=== PATIENT | male | born 1965 | race Caucasian/White ===

== ENCOUNTER 2018-12-02 13:04 | Emergency (ER) | payer BC, OTHER ==
[2018-12-02] MEDS ORDERED: Ketorolac 60 MG/2 ML SDV IM ONE (13:20)
[2018-12-02] MEDS ORDERED: Diazepam 5 MG Tab PO ONE (13:20)
--- NOTE | 2018-12-02 13:21 | EDM.PDOC ---
ED HPI GENERAL MEDICAL PROBLEM - General Chief Complaint: Back Pain or Injury Stated Complaint: BACK PAIN Time Seen by Provider: 12/02/18 13:21 Source of Information: Reports: Patient - History of Present Illness INITIAL COMMENTS - FREE TEXT/NARRATIVE: HISTORY AND PHYSICAL: History of present illness: [Patient presents with low back pain, he lifts heavy objects frequently while at work however injury did not actually occur at work where he first had symptoms, he was moving a small hole was radial on his back and symptoms began complains of 8 out of 10 back pain no radiation no footdrop saddle anesthesia no bowel or urine symptoms Can reproduce pain with palpation over right paraspinous muscles as well as left ] Review of systems: As per history of present illness and below otherwise all systems reviewed and negative. Past medical history: As per history of present illness and as reviewed below otherwise noncontributory. Surgical history: As per history of present illness and as reviewed below otherwise noncontributory. Social history: No reported history of drug or alcohol abuse. Family history: As per history of present illness and as reviewed below otherwise noncontributory. Physical exam: HEENT: Atraumatic, normocephalic, pupils reactive, negative for conjunctival pallor or scleral icterus, mucous membranes moist, throat clear, neck supple, nontender, trachea midline. Lungs: Clear to auscultation, breath sounds equal bilaterally, chest nontender. Heart: S1S2, regular, negative for clicks, rubs, or JVD. Abdomen: Soft, nondistended, nontender. Negative for masses or hepatosplenomegaly. Negative for costovertebral tenderness. Pelvis: Stable nontender. Genitourinary: Deferred. Rectal: Deferred. Extremities: Atraumatic, negative for cords or calf pain. Neurovascular unremarkable. Neuro: Awake, alert, oriented. Cranial nerves II through XII unremarkable. Cerebellum unremarkable. Motor and sensory unremarkable throughout. Exam nonfocal. Diagnostics: [Lumbar spine ] Therapeutics: [Toradol 60 mg IM Valium 5 mg by mouth ] Paxton Flexeril Rest ice ibuprofen Impression: [ local back pain/injury Or spinous muscle spasm left greater than right ] Definitive disposition and diagnosis as appropriate pending reevaluation and review of above. back Pain Score (Numeric/FACES): 10 - Related Data Allergies Allergy/AdvReac Type Severity Reaction Status Date / Time No Known Allergies Allergy Verified 12/02/18 13:17 Home Meds: Home Meds . [No Known Home Meds] 12/02/18 [History] ED ROS GENERAL - Review of Systems Review Of Systems: See Below ED EXAM, GENERAL - Physical Exam Exam: See Below Course - Vital Signs Last Recorded V/S: Last Vital Signs Temp 97.5 F 12/02/18 13:17 Pulse 82 12/02/18 13:17 Resp 20 12/02/18 13:17 BP 144/71 H 12/02/18 13:17 Pulse Ox 95 12/02/18 13:17 - Orders/Labs/Meds Orders: Active Orders 24 hr Category Date Time Status Lumbar Spine 2 or 3V [CR] Stat Exams 12/02/18 13:27 Taken Meds: Medications Discontinued Medications Generic Name Dose Route Start Last Admin Trade Name [place] PRN Reason Stop Dose Admin Diazepam 5 mg 12/02/18 13:20 12/02/18 13:41 Valium. PO 12/02/18 13:21 5 mg ONETIME ONE Administration Ketorolac Tromethamine 60 mg 12/02/18 13:20 12/02/18 13:42 Toradol IM 12/02/18 13:21 60 mg ONETIME ONE Administration Departure - Departure Time of Disposition: 14:18 Disposition: Home, Self-Care 01 Condition: Good Clinical Impression: Lumbar paraspinal muscle spasm, Back pain - Discharge Information Referrals: PCP,Unknown [Primary Care Provider] - Forms: ED Department Discharge Additional Instructions: The following information is given to patients seen in the emergency department who are being discharged to home. This information is to outline your options for follow-up care. We provide all patients seen in our emergency department with a follow-up referral. The need for follow-up, as well as the timing and circumstances, are variable depending upon the specifics of your emergency department visit. If you don't have a primary care physician on staff, we will provide you with a referral. We always advise you to contact your personal physician following an emergency department visit to inform them of the circumstance of the visit and for follow-up with them and/or the need for any referrals to a consulting specialist. The emergency department will also refer you to a specialist when appropriate. This referral assures that you have the opportunity for follow-up care with a specialist. All of these measure are taken in an effort to provide you with optimal care, which includes your follow-up. Under all circumstances we always encourage you to contact your private physician who remains a resource for coordinating your care. When calling for follow-up care, please make the office aware that this follow-up is from your recent emergency room visit. If for any reason you are refused follow-up, please contact the [facility] emergency department at and asked to speak to the emergency department charge nurse. - My Orders Last 24 Hours: My Active Orders 12/02/18 13:27 Lumbar Spine 2 or 3V [CR] Stat - Assessment/Plan Last 24 Hours: My Active Orders 12/02/18 13:27 Lumbar Spine 2 or 3V [CR] Stat
--- NOTE | 2018-12-02 14:48 | CR ---
INDICATION: Was moving furniture yesterday and this morning the pt states he couldn`t even get out of bed FINDINGS: Three views of the lumbar spine show normal height and alignment of the lumbar vertebral bodies. No evidence of acute fracture or dislocation. Small diffuse marginal osteophyte formation. No other bony or soft tissue abnormalities identified. Dictated by Michael Marie MD @ 12/02/2018 2:46:55 PM Dictated by: Michael Marie MD @ 12/02/2018 14:47:20 (Electronically Signed)
== END 2018-12-02 14:40 | disposition home or self-care (01) ==
LOC: MW.ED 13:04
DX: M62.830 Muscle spasm of back (principal); X50.0XXA Overexertion from strenuous movement or load, initial encounter; Y99.0 Civilian activity done for income or pay
CPT/HCPCS: 72100; 96372; 99283; A9270; J1885